=== PATIENT | female | born 1995 | race Caucasian/White ===

== ENCOUNTER 2020-08-13 14:38 | Emergency (ER) | payer OTHER ==
[2020-08-13] MEDS ORDERED: ONDANSETRON 4 MG/2 ML VIAL IVP STA (14:59)
[2020-08-13] MEDS ORDERED: SODIUM CHLORIDE 0.9% 1,000 ML IV STA (14:59)
--- NOTE | 2020-08-13 15:01 | ED Physician Documentation ---
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 About 4 days ago she developed some nausea, it went away the next day but subsequently got it again yesterday and has been nauseous ever since with some vomiting and mild diarrhea as well as mildly painful stomach. She denies fevers or chills. No sick contacts or recent travel. She doubts any possibility of as she just got off a normal period. Review of Systems Ten Systems: 10 systems reviewed and negative Constitutional: denies: Fever, Chills Nose: denies: Rhinorrhea / runny nose, Congestion Respiratory: denies: Dyspnea, Cough GI: reports: Abdominal Pain, Nausea, Vomiting, Diarrhea. denies: Abdominal Swelling, Hematemesis, Bloody / black stool PD PAST MEDICAL HISTORY - Past Medical History Past Medical History: Yes Psych: ADD/ADHD - Present Medications Home Medications: Ambulatory Orders Medication Instructions Recorded Confirmed Ondansetron Odt [Zofran] 4 mg TL Q6H PRN #10 tablet 08/13/20 PD ED PE NORMAL - Vitals Vital signs reviewed: Yes - General General: Alert and oriented X 3, No acute distress - HEENT HEENT: PERRL, EOMI - Neck Neck: Supple, no meningeal sign, No bony TTP - Cardiac Cardiac: RRR, No murmur - Respiratory Respiratory: No respiratory distress, Clear bilaterally - Abdomen Abdomen: Normal bowel sounds, Soft, Other (Mild tenderness in the right lower quadrant without surgical signs) - Back Back: No CVA TTP, No spinal TTP - Derm Derm: Normal color, Warm and dry - Extremities Extremities: No edema, No calf tenderness / cord - Neuro Neuro: Alert and oriented X 3, Normal speech Results - Vitals Vitals: Vital Signs - 24 hr 08/13/20 14:46 Temperature 36.3 C L Heart Rate 85 Respiratory 18 Rate Blood Pressure 128/84 H O2 Saturation 99 Oxygen O2 Source Room air - Labs Labs: Laboratory Tests 08/13/20 08/13/20 08/13/20 15:07 15:10 15:10 WBC 6.9 RBC 5.17 Hgb 15.8 Hct 45.7 MCV 88.4 MCH 30.6 MCHC 34.6 RDW 12.0 Plt Count 297 MPV 9.9 Neut # (Auto) 3.9 Lymph # (Auto) 2.3 Kern # (Auto) 0.5 Eos # (Auto) 0.2 Baso # (Auto) 0.0 Absolute Nucleated RBC 0.00 Nucleated RBC % 0.0 Sodium 140 Potassium 4.1 Chloride 103 Carbon Dioxide 27 Anion Gap 10.0 BUN 11 Creatinine 0.7 Estimated GFR (MDRD) 105 Glucose 92 Calcium 9.9 Total Bilirubin 0.5 AST 15 ALT 15 Alkaline Phosphatase 46 Total Protein 7.9 Albumin 4.7 Globulin 3.2 Albumin/Globulin Ratio 1.5 Lipase 24 Urine Color YELLOW Urine Clarity CLEAR Urine pH 6.5 Ur Specific Coral 1.010 Urine Protein NEGATIVE Urine Glucose (UA) NEGATIVE Urine Ketones NEGATIVE Urine Occult Blood NEGATIVE Urine Nitrite NEGATIVE Urine Bilirubin NEGATIVE Urine Urobilinogen 0.2 (NORMAL) Ur Leukocyte Esterase NEGATIVE Ur Microscopic Review NOT INDICATED Urine Culture Comments NOT INDICATED Urine HCG, Qual NEGATIVE PD MEDICAL DECISION MAKING - ED course ED course: 24-year-old woman with a couple of days of nausea vomiting and diarrhea. Very mild right lower quadrant tenderness which was not present on reevaluation just prior to discharge. That combined with the white count of only 6.9 makes appendicitis very unlikely. She was not . Feeling much better after some IV fluids and IV Zofran. Passed an oral challenge , Given close discharge / return precautions. Departure - Departure Disposition: 01 Home, Self Care Clinical Impression: Gastroenteritis Condition: Good Record reviewed to determine appropriate education?: Yes Instructions: ED Gastroenteritis Viral Prescriptions: Ondansetron Odt [Zofran] 4 mg TL Q6H PRN #10 tablet PRN Reason: Nausea / Vomiting Comments: Most likely today is that she have a viral illness, that said if not better in the next 24 hours or anytime if worse or if the pain worsens please return immediately for reevaluation. Also return if you run a fever.
[2020-08-13 15:15] LABS: BILIRUBIN,URINE NEGATIVE (NEGATIVE); GLUCOSE, URINE (UA) NEGATIVE (NEGATIVE); KETONES,URINE (UA) NEGATIVE (NEGATIVE); LEUKOCYTE ESTERASE, URINE NEGATIVE (NEGATIVE); NITRITE,URINE NEGATIVE (NEGATIVE); OCCULT BLOOD,URINE NEGATIVE (NEGATIVE); PH,URINE 6.5 PH (5.0-7.5); PROTEIN,URINE NEGATIVE (NEGATIVE); UROBILINOGEN,URINE 0.2 (NORMAL) E.U./dL (NORMAL)
[2020-08-13 15:18] LABS: CLARITY,URINE CLEAR (CLEAR); HCG UR QUAL NEGATIVE
[2020-08-13 15:20] LABS: BASOPHILS % (AUTO) 0.4 %; EOSINOPHILS # (AUTO) 0.2 10^3/uL (0.0-0.7); EOSINOPHILS % (AUTO) 2.6 %; HCT - HEMATOCRIT 45.7 % (37.0-47.0); HGB - HEMOGLOBIN 15.8 g/dL (12.0-16.0); LYMPHOCYTES # (AUTO) 2.3 10^3/uL (1.5-3.5); LYMPHOCYTES % (AUTO) 33.6 %; MEAN CORPUSCULAR HEMOGLOBIN 30.6 pg (27.0-31.0); MEAN CORPUSCULAR HGB CONC 34.6 g/dL (32.0-36.0); MEAN CORPUSCULAR VOLUME 88.4 fL (81.0-99.0); MEAN PLATELET VOLUME 9.9 fL (7.9-10.8); MONOCYTES # (AUTO) 0.5 10^3/uL (0.0-1.0); MONOCYTES % (AUTO) 7.2 %; NEUTROPHILS # (AUTO) 3.9 10^3/uL (1.5-6.6); NEUTROPHILS % (AUTO) 55.9 %; PLT - PLATELET COUNT 297 10^3/uL (130-450); RED BLOOD COUNT 5.17 10^6/uL (4.20-5.40); WHITE BLOOD COUNT 6.9 x10^3/uL (4.8-10.8)
[2020-08-13 16:03] LABS: ALBUMIN 4.7 g/dL (3.2-5.5); ALBUMIN/GLOBULIN RATIO 1.5 (1.0-2.2); BILIRUBIN,TOTAL 0.5 mg/dL (0.2-1.0); CALCIUM 9.9 mg/dL (8.5-10.3); CREATININE 0.7 mg/dL (0.4-1.0); POTASSIUM 4.1 mmol/L (3.5-5.0); TOTAL PROTEIN 7.9 g/dL (6.7-8.2)
[2020-08-13 16:33] VITALS: BP 115/60
== END 2020-08-13 16:30 | disposition home or self-care (01) ==
LOC: ED 14:38
DX: K52.9 Noninfective gastroenteritis and colitis, unspecified (principal)
CPT/HCPCS: 36415; 80053; 81001; 81003; 81025; 83690; 85025; 87086; 96374; 99284

== ENCOUNTER 2021-05-14 12:53 | Emergency (ER) | payer OTHER ==
[2021-05-14 13:17] LABS: RAPID STREP SCREEN Negative (Negative)
[2021-05-14] MEDS ORDERED: KETOROLAC 30 MG/ML VIAL IM STA (14:44)
[2021-05-14] MEDS ORDERED: predniSONE 20 MG TABLET PO STA (14:44)
--- NOTE | 2021-05-14 14:46 | ED Physician Documentation ---
PD HPI HEENT - Stated complaint Stated Complaint: THROAT PX - Chief complaint Chief Complaint: Heent - History obtained from History obtained from: Patient - Additional information Additional information: Patient comes emergency department chief complaint of sore throat. She has been sick for about the last 4 days but she was diagnosed with the flu a couple of days ago. Patient states that she has just had a very sore throat and feels as though her lymph nodes are swollen. No fevers. She has had chills. She has been coughing. No shortness of breath. Mild runny nose. She states she is vaccinated for both flu and Covid. No other complaints at this time. Review of Systems Ten Systems: 10 systems reviewed and negative Constitutional: reports: Chills Eyes: reports: Reviewed and negative Ears: reports: Reviewed and negative Nose: reports: Reviewed and negative Throat: reports: Sore throat Cardiac: reports: Reviewed and negative Respiratory: reports: Cough GI: reports: Reviewed and negative : reports: Reviewed and negative Skin: reports: Reviewed and negative Musculoskeletal: reports: Reviewed and negative Neurologic: reports: Reviewed and negative Psychiatric: reports: Reviewed and negative Endocrine: reports: Reviewed and negative Immunocompromised: reports: Reviewed and negative PD PAST MEDICAL HISTORY - Past Medical History Respiratory: Asthma Psych: ADD/ADHD - Past Surgical History Past Surgical History: No - Present Medications Home Medications: Ambulatory Orders Medication Instructions Recorded Confirmed Ondansetron Odt [Zofran] 4 mg TL Q6H PRN #10 tablet 08/13/20 Hydrocodone/Acetaminophen [Lortab 10 ml PO Q6H PRN #150 ml 05/14/21 10 mg-300 mg/15 ml Elxr] predniSONE [Deltasone] 60 mg PO DAILY 5 Days #15 tablet 05/14/21 - Allergies Allergies/Adverse Reactions: Allergies Allergy/AdvReac Type Severity Reaction Status Date / Time sulfamethoxazole Allergy Hives Verified 05/14/21 13:00 [From Bactrim] trimethoprim [From Bactrim] Allergy Hives Verified 05/14/21 13:00 - Social History Does the pt smoke?: No Smoking Status: Never smoker Does the pt drink ETOH?: No Does the pt have substance abuse?: No - Immunizations Immunizations are current?: Yes - POLST Patient has POLST: No PD ED PE NORMAL - Vitals Vital signs reviewed: Yes - General General: Alert and oriented X 3, Well developed/nourished, Other (Patient is tearful and appears uncomfortable, but otherwise in no apparent distress) - HEENT HEENT: Atraumatic, PERRL, EOMI, Moist mucous membranes, Pharynx benign - Neck Neck: Supple, no meningeal sign, No adenopathy - Cardiac Cardiac: RRR, No murmur, Strong equal pulses - Respiratory Respiratory: No respiratory distress, Clear bilaterally - Derm Derm: Normal color, Warm and dry, No rash - Extremities Extremities: No deformity - Neuro Neuro: Alert and oriented X 3, 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 She had already been diagnosed with influenza and I discussed with her that most likely, her symptoms are secondary to this. She had already had a negative Covid test, as well. She is handling her secretions well and without concerning symptoms, such as stridor or alteration in voice. We discussed home management of symptoms. The patient was given doses of Toradol prednisone here in the emergency department. We have discussed the usual indications for return. Departure - Departure Disposition: 01 Home, Self Care Clinical Impression: Sore throat, Influenza Condition: Stable Instructions: ED Flu Prescriptions: predniSONE [Deltasone] 60 mg PO DAILY 5 Days #15 tablet Hydrocodone/Acetaminophen [Lortab 10 mg-300 mg/15 ml Elxr] 10 ml PO Q6H PRN #150 ml PRN Reason: Pain Comments: Your prescriptions have been electronically transmitted to [facility] in [place].
[2021-05-14 15:19] VITALS: BP 134/70
--- NOTE | 2021-05-16 17:13 | ED Physician Documentation ---
ED Addendum - Addendum Addendum: 05/16/21 17:11 Throat culture is positive for group C beta-hemolytic strep. A prescription for penicillin was sent to [facility] in [place] Departure - Departure Disposition: 01 Home, Self Care Clinical Impression: Sore throat, Influenza Condition: Stable Instructions: ED Flu Prescriptions: Penicillin V Potassium 500 mg PO Q6HR #40 tablet predniSONE [Deltasone] 60 mg PO DAILY 5 Days #15 tablet Hydrocodone/Acetaminophen [Lortab 10 mg-300 mg/15 ml Elxr] 10 ml PO Q6H PRN #150 ml PRN Reason: Pain Comments: Your prescriptions have been electronically transmitted to [facility] in [place]. Discharge Date/Time: 05/14/21 15:26
== END 2021-05-14 15:26 | disposition home or self-care (01) ==
LOC: ED 12:53
DX: J11.1 Influenza due to unidentified influenza virus with other respiratory manifestations (principal); J02.0 Streptococcal pharyngitis; B95.4 Other streptococcus as the cause of diseases classified elsewhere
CPT/HCPCS: 87070; 87430; 96372; 99283; J7512

== ENCOUNTER 2021-10-16 19:16 | Emergency (ER) | payer OTHER ==
[2021-10-16] MEDS ORDERED: KETOROLAC 15 MG/ML VIAL IVP STA (19:57)
[2021-10-16] MEDS ORDERED: SODIUM CHLORIDE 0.9% 1,000 ML IV STA (19:57)
[2021-10-16] MEDS ORDERED: DEXAMETHASONE 10 MG/ML VIAL IVP STA (20:17)
--- NOTE | 2021-10-16 20:19 | ED Physician Documentation ---
PD HPI HEENT - Stated complaint Stated Complaint: C+,CHILLS,HEADACHE,FEVER - Chief complaint Chief Complaint: Fever - History obtained from History obtained from: Patient - Additional information Additional information: 26-year-old woman with history of asthma presents for symptomatic COVID. She has been sick for about 3 days with coughing, severe sore throat, myalgias fatigue sweats and fevers. She is mildly short of breath. She was vaccinated but not boosted for COVID. Review of Systems Constitutional: reports: Fever, Chills, Myalgias, Fatigue Nose: reports: Rhinorrhea / runny nose Throat: reports: Sore throat Respiratory: reports: Dyspnea. denies: Cough PD PAST MEDICAL HISTORY - Past Medical History Past Medical History: Yes Respiratory: Asthma Psych: Depression, Anxiety, ADD/ADHD - Past Surgical History Past Surgical History: No - Present Medications Home Medications: Ambulatory Orders Medication Instructions Recorded Confirmed Albuterol Sulfate [Proair Hfa 1 puffs INH Q4HR PRN 10/16/21 10/16/21 Inhaler] DULoxetine [Cymbalta] 20 mg PO DAILY 10/16/21 10/16/21 Methylphenidate HCl [Concerta] 18 mg PO HS 10/16/21 10/16/21 Methylphenidate HCl [Concerta] 56 mg PO DAILY 10/16/21 10/16/21 Rizatriptan Benzoate [Rizatriptan] 10 mg PO DAILY PRN 10/16/21 10/16/21 predniSONE [Deltasone] 60 mg PO DAILY 5 Days #15 tablet 10/16/21 - Allergies Allergies/Adverse Reactions: Allergies Allergy/AdvReac Type Severity Reaction Status Date / Time avocado Allergy Rash Verified 10/16/21 19:25 kiwi Allergy Anaphylaxis Verified 10/16/21 19:25 sulfamethoxazole Allergy Hives Verified 10/16/21 19:25 [From Bactrim] trimethoprim [From Bactrim] Allergy Hives Verified 10/16/21 19:25 - Social History Does the pt smoke?: No Smoking Status: Never smoker Does the pt drink ETOH?: No Does the pt have substance abuse?: No - Immunizations Immunizations are current?: Yes - POLST Patient has POLST: No PD ED PE NORMAL - Vitals Vital signs reviewed: Yes - General General: Alert and oriented X 3, No acute distress - HEENT HEENT: Other (Slightly hoarse voice but the visualized portions of the oropharynx appear normal.) - Cardiac Cardiac: RRR, No murmur - Respiratory Respiratory: No respiratory distress, Other (Mild expiratory wheezes) - Abdomen Abdomen: Soft, Non tender - Back Back: No CVA TTP, No spinal TTP - Derm Derm: Normal color, Warm and dry - Extremities Extremities: No edema, No calf tenderness / cord - Neuro Neuro: Alert and oriented X 3, Normal speech Results - Vitals Vitals: Vital Signs - 24 hr 10/16/21 19:21 Temperature 37.2 C Heart Rate 92 Respiratory 18 Rate Blood Pressure 137/74 H O2 Saturation 97 Oxygen O2 Source Room air PD MEDICAL DECISION MAKING - ED course ED course: Given that she is wheezing, steroids seem appropriate, we discussed oral antivirals but after discussion she declined. Departure - Departure Disposition: 01 Home, Self Care Clinical Impression: COVID-19 Condition: Good Record reviewed to determine appropriate education?: Yes Instructions: ED Viral Syndrome Prescriptions: predniSONE [Deltasone] 60 mg PO DAILY 5 Days #15 tablet Comments: I sent your prescription electronically to [email or web address] in [place]. Return for new or worsening symptoms. In addition to the prescribed medications you can take ibuprofen. Return if worsening. Drink plenty of fluids. Continue to quarantine as you are.
[2021-10-16 20:34] VITALS: BP 131/72
== END 2021-10-16 21:07 | disposition home or self-care (01) ==
LOC: ED 19:16
DX: U07.1 COVID-19 (principal)
CPT/HCPCS: 96374; 96375; 99281